=== PATIENT | male | born 1990 | race Two or more races ===

== ENCOUNTER 2021-10-12 14:52 | Emergency (ER) | payer OTHER ==
[~2021-10-12] VITALS: Ht 182.9 cm; Wt 73.5 kg
--- NOTE | 2021-10-12 14:55 | NUR ---
MD at bedside, medical screening exam in progress.
[2021-10-12 15:41] LABS: HEMATOCRIT 37.3 % (36.7-47.1); MEAN CORPUSCULAR HEMOGLOBIN 27.6 uug (23.8-33.4); MEAN CORPUSCULAR VOLUME 82.2 fL (73.0-96.2); PLATELET COUNT (AUTO) 358 K/uL (152-348)
[2021-10-12] MEDS ORDERED: IV NORMAL SALINE 1000 ML BAG IV ONE (15:45)
[2021-10-12 16:00] LABS: BILIRUBIN,DIRECT 0.1 mg/dL (0.0-0.2); BILIRUBIN,TOTAL 0.3 mg/dL (0.2-1.0); TOTAL PROTEIN, SERUM 7.3 g/dL (6.4-8.2)
--- NOTE | 2021-10-12 16:34 | NUR ---
Patient discharged to home in stable condition. Written and verbal after care instructions given. Patient verbalizes understanding of instructions. Stressed follow up or return to ER for worsening s/s. IV line removed.
[2021-10-12 16:35] VITALS: BP 121/80
== END 2021-10-12 16:35 | disposition home or self-care (01) ==
LOC: ER 14:52
DX: R55 Syncope and collapse (principal); R94.31 Abnormal electrocardiogram [ECG] [EKG]; K51.90 Ulcerative colitis, unspecified, without complications
CPT/HCPCS: 36415; 80048; 80076; 85025; 93005; 99284; J7040; A4663